=== PATIENT | male | born 1955 | race Caucasian/White ===

== ENCOUNTER 2021-02-11 20:37 | Emergency (ER) | payer OTHER ==
[~2021-02-11] VITALS: Ht 177.8 cm; Wt 122.0 kg
[2021-02-11] MEDS ORDERED: LIPITOR40 M1 (21:06)
== END 2021-02-12 02:06 | disposition home or self-care (01) ==
LOC: ER 20:37
DX: N20.2 Calculus of kidney with calculus of ureter (principal); R10.12 Left upper quadrant pain; R10.32 Left lower quadrant pain